=== PATIENT | male | born 1990 | race American Indian/Alaskan Native ===

== ENCOUNTER 2017-11-26 17:35 | Emergency (ER) | payer BC ==
[2017-11-26 17:46] VITALS: BP 134/82
[2017-11-26] MEDS ORDERED: BSS 1 DROPS, TETRACAINE 0.5% 1 DROPS, FUL-GLO 0.6 MG OD ONE (17:51)
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
[2017-11-26] MEDS ORDERED: BSS ONE (18:05)
[2017-11-26] MEDS ORDERED: FUL-GLO OP ONE (18:05)
[2017-11-26] MEDS ORDERED: TETRACAINE 0.5% ONE (18:06)
[2017-11-26] MEDS ORDERED: NORCO 7.5/325 PO ONE (18:09)
[2017-11-26] MEDS ORDERED: BOOSTRIX IM ONE (18:10)
== END 2017-11-26 19:04 | disposition home or self-care (01) ==
LOC: ED 17:35
DX: S05.01XA Injury of conjunctiva and corneal abrasion without foreign body, right eye, initial encounter (principal); F17.200 Nicotine dependence, unspecified, uncomplicated; F10.929 Alcohol use, unspecified with intoxication, unspecified; Y29.XXXA Contact with blunt object, undetermined intent, initial encounter; Y93.01 Activity, walking, marching and hiking; Y92.69 Other specified industrial and construction area as the place of occurrence of the external cause; Y99.8 Other external cause status
CPT/HCPCS: 90471; 90715; 99283

== ENCOUNTER 2019-01-28 10:03 | Emergency (ER) | payer BC ==
--- NOTE | 2019-01-28 11:55 | XRay Report ---
RIGHT HAND 3 VIEWS INDICATION / CLINICAL INFORMATION: trauma, pain. COMPARISON: None available. FINDINGS: Old fifth metacarpal fracture with internal fixation. This bone appears to be fractured immediately d istal to the fixation plate and screws, but this does not appear acute. 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 I see no acute fracture. Signer Name: Migue Atwood MD Signed: 01/28/2019 11:51 AM Workstation Name: [id number]
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
[2019-01-28] MEDS ORDERED: IBUPROFEN 800 MG TAB PO ONE (14:20)
[2019-01-28] MEDS ORDERED: HYDROcodone/ACETAMINOPHEN 5-325 MG TAB PO ONE (14:20)
[2019-01-28 15:00] VITALS: BP 107/56
== END 2019-01-28 15:02 | disposition home or self-care (01) ==
LOC: ED 10:03
DX: S60.221A Contusion of right hand, initial encounter (principal); F17.200 Nicotine dependence, unspecified, uncomplicated; F12.10 Cannabis abuse, uncomplicated; Z79.1 Long term (current) use of non-steroidal anti-inflammatories (NSAID); Z79.899 Other long term (current) drug therapy; Y33.XXXA Other specified events, undetermined intent, initial encounter; Z98.890 Other specified postprocedural states; Y93.89 Activity, other specified; Y92.89 Other specified places as the place of occurrence of the external cause; Y99.8 Other external cause status